=== PATIENT | female | born 1940 | race Hispanic/Latino ===

== ENCOUNTER 2021-10-11 17:47 | Emergency (ER) | payer OTHER, SELFPAY ==
[2021-10-11 18:18] VITALS: BP 156/95; PULSE 82; RESP 16; TEMP 37.2; O2SAT 98
--- NOTE | 2021-10-11 18:43 | ED.WOUNDLAC ---
HPI - Wound/Laceration General Chief Complaint: Wound/Laceration Stated Complaint: left leg swelling/painful Time Seen by Provider: 10/11/21 18:43 Source: patient Mode of arrival: ambulatory Limitations: no limitations History of Present Illness HPI narrative: Xochitl Larsen is a 81 yo female with a history of hypertension who comes to [facility] for a cut on her mid tibial area of her left leg that occurred 2 weeks ago in [place] when a door fell on her leg.. Is now red and tender Related Data Allergies Allergy/AdvReac Type Severity Reaction Status Date / Time No Known Allergies Allergy Verified 10/11/21 18:38 Review of Systems Review of Systems: CONSTITUTIONAL: Denies fever, chills, sweats. EYES: Denies visual changes, redness, discharge. ENT: Denies rhinorrhea, congestion, sore throat, otalgia. CARDIOVASCULAR: Denies chest pain, palpitations, edema. RESPIRATORY: Denies dyspnea, wheezing, cough GASTROINTESTINAL: Denies abdominal pain, nausea, vomiting, diarrhea. GENITOURINARY: Denies dysuria, hematuria, abnormal discharge SKIN: Denies rash or itching. Wound to left lower extremity anterior that is elliptical in shape and appears to be infected NEUROLOGIC: Denies numbness, or focal weakness. PSYCHIATRIC: Denies anxiety or depression. [facility] Past Medical History Medical History Hypertension Social History Social History (Updated 10/11/21 @ 18:44 by Cheyenne Mclean CNP) Smoking status: Never smoker Alcohol intake: never Comments At time of signature, I agree with nursing past medical, surgical, social and family history. There is no relevant family history pertinent to the presenting complaint. Exam Narrative: GENERAL: This is a well-nourished, well-developed patient, in mild distress. HEAD: normocephalic, atraumatic. EYES: Sclera clear/white. Vision is grossly intact. EARS: External ears normal, . Hearing grossly intact. NOSE: External nose normal without nasal discharge, nares without redness, no rhinorrhea. THROAT: Mucous membranes moist, NECK: Neck supple, CARDIOVASCULAR: Regular rate and rhythm without murmurs, gallops, or rubs. RESPIRATORY: Clear to auscultation. Breath sounds equal bilaterally. No wheezes, rales, or rhonchi. GASTROINTESTINAL: Abdomen soft, SKIN: warm, intact with elliptical wound to left lower leg that is about 4 cm in length and appears puffy red and open is not losing but is tender to touch and is warm; 2+ pulse to foot NEURO: awake, alert, and oriented to person, place and time. There were no obvious focal neurologic abnormalities. Steady gait EXTREMITIES: Normal range of motion. BACK: Nontender without deformity Course Course Emergency Course: Patient comes laceration to left lower leg that occurred 2 weeks ago in [place] when a door fell on her leg and is now become infected Patient started on Keflex and Bactrim To wrap area with Neosporin Telfa dressing and cover with a Calderon dressing. Clean wound with soap and water twice a day Vital Signs Vital signs: Vital Signs Temperature 98.9 F 10/11/21 18:18 Pulse Rate 82 10/11/21 18:18 Respiratory Rate 16 10/11/21 18:18 Blood Pressure 156/95 H 10/11/21 18:18 Pulse Oximetry 98 10/11/21 18:18 Temperature 98.9 F 10/11/21 18:18 Pulse Rate 82 10/11/21 18:18 Respiratory Rate 16 10/11/21 18:18 Blood Pressure 156/95 H 10/11/21 18:18 Pulse Oximetry 98 10/11/21 18:18 MDM - Wound/Laceration Differential Diagnosis Differential diagnosis: Likely laceration, abrasion and avulsion of skin Critical Care Time Critical Care Time Critical Care Time: No Discharge Plan Discharge Clinical Impression: Laceration Patient Disposition: Home, Self-Care Condition: Stable Instructions: Cellulitis (ED) Prescriptions: New cephalexin 500 mg capsule 500 mg PO Q12H Qty: 20 RF: 0 sulfamethoxazole-trimethoprim [Bactrim DS] 800-160 mg tabl
== END 2021-10-11 19:10 | disposition home or self-care (01) ==
PROVIDERS: Emergency Provider Nurse Practitioner; PCP Registered Nurse
DX: S81.812A Laceration without foreign body, left lower leg, initial encounter (principal); W20.8XXA Other cause of strike by thrown, projected or falling object, initial encounter; I10 Essential (primary) hypertension
CPT/HCPCS: 99203; G0463

== ENCOUNTER 2023-10-10 12:13 | Emergency (ER) | payer MEDICARE, SELFPAY ==
--- NOTE | ~2023-10-10 | XR_ITS ---
XR hip RT 2V w AP pelvis DATE: 10/10/2023 12:54 INDICATION: Multiple falls. Right hip pain. TECHNIQUE: COMPARISON: None FINDINGS: Dextroscoliosis and multi-level severe degenerative disc disease of the lumbar spine. 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 There is mild to moderate bilateral hip osteoarthritis. No pelvic fracture or bone destruction is detected. IMPRESSION: Dextroscoliosis and severe lumbar degenerative disc disease Mild to moderate bilateral hip osteoarthritis Reviewed, dictated and finalized at location L. GING ROLL OPERATOR
[2023-10-10 12:24] VITALS: BP 95/74; PULSE 88; RESP 24; TEMP 36.8; O2SAT 98
--- NOTE | 2023-10-10 12:32 | ED.DIZZY ---
HPI - Dizziness General Chief Complaint: Dizziness Stated Complaint: Dizziness/SOB Time Seen by Provider: 10/10/23 13:00 Mode of arrival: ambulatory Limitations: language barrier (Bhutanese speaking, painter foreman used) History of Present Illness HPI Narrative: 83 year old female presents with concern for dizziness, near-syncope, 3 falls in the last 4 days. She reports she had a pinching sensation in her right ear. She reports she has also been having a cough. She reports she fell today and hit her right hip, she is having some hip pain. She denies chest pain, shortness of breath, headache. She reports some mild cough and runny nose. MD elicited complaint: dizziness and near syncope Related Data Allergies Allergy/AdvReac Type Severity Reaction Status Date / Time Penicillins Allergy Rash Verified 10/10/23 12:45 Review of Systems Review of Systems: CONSTITUTIONAL: Denies malaise, chills, sweats, or fever. EYES: Denies visual changes ENT: Reports rhinorrhea, congestion, otalgia CARDIOVASCULAR: Denies chest pain, palpitations, or edema. RESPIRATORY: Reports cough. Denies dyspnea. GASTROINTESTINAL: Denies abdominal pain, nausea, vomiting, diarrhea MUSCULOSKELETAL: Reports right hip pain NEUROLOGIC: Denies numbness, weakness, or headache. Reports near syncope and dizziness All systems reviewed & are unremarkable except as noted in HPI and below PMFSH Past Medical History Medical History Dyslipidemia Essential (primary) hypertension Osteoarthritis Osteoporosis Surgical History Surgical History H/O cerebral aneurysm repair (~2015) clipping H/O shoulder surgery (~2017) Left Hx of cholecystectomy (~2007) Family History Family History Other Cerebrovascular accident Social History Social History Smoking status: Never smoker Alcohol intake: never Substance use: never Substance use type: does not use Lack of Transportation: No Lack of Food: Never True Current Housing: I Have Housing Concerned About Future Housing: No Difficulty Paying Gas/Electric Bills: No Difficulty Paying for Meds: No Currently Unemployed: No Education: Decline to Answer Difficulty w/ Childcare or Family Care: No Living arrangements: with family Occupation/Education: retired Gender identity (if verbalized by the patient): Female Sexual Orientation (if Verbalized by the Patient): Straight or Heterosexual Spiritual care concerns: No Agree to blood products: Yes Comments At time of signature, agree with nursing past medical, surgical, social and family history. There is no relevant family history pertinent to the presenting complaint Exam Narrative: GENERAL: Well-appearing, well-nourished, and in no acute distress. HEAD: Normocephalic, atraumatic. EYES: PERRLA, sclera clear, and EOMI. No nystagmus. ENT: Nares clear, turbinates pink, no rhinorrhea or epistaxis. Mucous membranes moist. TM pearly barnhart with dull light reflex bilaterally; no tragal tenderness. Oropharynx without erythema or lesions. Tonsils not enlarged and without exudate. NECK: Supple. CHEST: No respiratory distress. Clear to auscultation. No bony deformities, no asymmetry. Speaks in full sentences. Cough noted HEART: Regular rate and rhythm. No murmur heard. SKIN: Warm, dry, no visible rash. NEURO: Alert and oriented x3. PSYCH: Normal mood and affect Course Course Emergency Course: Patient is aware of, understands and agrees to be transferred to the emergency department, EMS offered, patient refused. Patient agrees to proceed directly to the emergency department. Portions of this record may have been created with voice recognition software Level of Care: Express Care Visit Vital Signs Vital signs:
--- NOTE | 2023-10-10 12:38 | ECG_ITS ---
Measurements Intervals [place] Rate: 81 P: 19 GA: 131 QRS: 27 QRSD: 86 T: 3 QT: 345 QTc: 401 Interpretive Statements SINUS RHYTHM WITH SINUS ARRHYTHMIA INCOMPLETE RIGHT BUNDLE BRANCH BLOCK BORDERLINE ST-T WAVE ABNORMALITY- INFERIOR LEADS BASELINE ARTIFACT- I, II, III, AVR, AVL, AVF, V1-V6 BORDERLINE ECG NO PREVIOUS ECG AVAILABLE FOR COMPARISON Electronically Signed On 10-10-2023 13:01:02 COLLISION MECHANIC by Farhat Bernard D.O.
== END 2023-10-10 13:20 | disposition short-term general hospital (02) ==
PROVIDERS: Emergency Provider Nurse Practitioner; PCP Family Medicine
DX: R42 Dizziness and giddiness (principal); E78.5 Hyperlipidemia, unspecified; I10 Essential (primary) hypertension; M19.90 Unspecified osteoarthritis, unspecified site; M81.0 Age-related osteoporosis without current pathological fracture
CPT/HCPCS: 73502; 81003; 93005; 99213; G0463

== ENCOUNTER 2023-10-10 13:42 | Emergency (ER) | payer MEDICARE, SELFPAY ==
[2023-10-10] VITALS (24 sets, daily range): BP systolic 99–119; BP diastolic 67–77; PULSE 64–88; RESP 13–25; TEMP 36.9; O2SAT 94–99
--- NOTE | 2023-10-10 13:49 | ECG_ITS ---
Measurements Intervals [place] Rate: 85 P: 19 MT: 118 QRS: -21 QRSD: 89 T: -6 QT: 359 QTc: 428 Interpretive Statements SINUS RHYTHM WITH SHORT MT INTERVAL INCOMPLETE RIGHT BUNDLE BRANCH BLOCK BORDERLINE ST-T WAVE ABNORMALITY- ANT/INF LEADS BASELINE ARTIFACT- I, II, III, AVR, AVL, AVF BORDERLINE ECG COMPARED TO ECG 10/10/2023 12:40:00 NO SIGNIFICANT CHANGES Electronically Signed On 10-10-2023 14:37:16 DOG CONTROL OFFICER by Farhat Bernard D.O.
[2023-10-10 14:14] LABS: Basophils Percent Auto 0.3 % (0.2-1.2); Eosinophils Percent Auto 0.3 % (0-4.4); Hematocrit 42.8 % (37.0-47.0); Hemoglobin 13.9 g/dL (12.0-15.0); Immature Granulocyte Absolute 0.29 K/mm3 (0.00-0.031); Immature Granulocyte Percent A 2.2 % (0-0.5); Lymphocytes Absolute Auto 2.02 K/mm3 (0.9-3.2); Lymphocytes Percent Auto 15.2 % (18.3-44.2); Mean Corpuscular HGB Conc 32.5 g/dl (32-36); Mean Corpuscular Hemoglobin 32.2 pg (26-34); Mean Corpuscular Volume 99.1 fl (80-100); Mean Platelet Volume 9.6 fl (7.4-10.4); Monocytes Absolute Auto 1.3 K/mm3 (0.1-0.6); Monocytes Percent Auto 9.5 % (2.6-8.5); Neutrophils Absolute Auto 9.7 K/mm3 (1.3-6.7); Neutrophils Percent Auto 72.5 % (45.5-73.1); Platelet Count Result 339 k/mm3 (150-375); Red Blood Count 4.32 M/mm3 (4.2-5.4); Red Cell Distribution Width 14.6 % (11.5-14.5); White Blood Count 13.3 K/mm3 (4.5-10.0)
[2023-10-10 14:25] LABS: Alanine Aminotransferase 23 U/L (6-35); Albumin Level 3.8 g/dL (3.5-5.1); Alkaline Phosphatase 101 U/L (38-126); Anion Gap 9 mmol/L (8-16); Aspartate Amino Transferase 27 U/L (14-36); Bilirubin,Total 0.6 mg/dL (0.2-1.3); Blood Urea Nitrogen 19 mg/dL (7-17); Calcium 8.5 mg/dL (8.4-10.2); Carbon Dioxide 24 mmol/L (22-30); Chloride 106 mmol/L (98-107); Estimated Glomerular Filt Rate > 60; Glucose 88 mg/dL (65-110); Potassium 3.8 mmol/L (3.4-5.0); Sodium 139 mmol/L (137-145)
[2023-10-10 15:45] LABS: Influenza A QL RT-PCR Positive (Negative); Influenza B QL RT-PCR Negative (Negative); RSV RNA, RT-PCR Negative (Negative); SARS-CoV-2 RNA PCR Negative (Negative)
--- NOTE | 2023-10-10 16:01 | ED.SYNCOPE ---
HPI - Syncope General Chief Complaint: Dizziness Stated Complaint: dizziness/near syncope Time Seen by Provider: 10/10/23 16:01 History of Present Illness HPI narrative: Patient is an 83 year old female with history of hypertension, HLD, osteoporosis here with dizziness and multiple falls. Patient endorses episodes of dizziness and the feeling like she may pass out. She had 2 separate episodes over the last few days. Last night she had an episode of dizziness and this made her feel as though she may pass out or fall over and she fell down onto a chair. She is initially experiencing some right hip pain but she has no pain at this time. She is currently completely asymptomatic and feels like her normal self. The dizziness is associated with some discomfort in her right ear. She also endorses cough and rhinorrhea which started about 2 weeks ago and seems to be improving. She denies chest pain, shortness of breath and headache. History obtained with hvac services professional [id number] and son. Related Data Allergies Allergy/AdvReac Type Severity Reaction Status Date / Time Penicillins Allergy Rash Verified 10/10/23 14:16 Review of Systems Review of Systems: All systems reviewed & are unremarkable except as noted in HPI and below PMFSH Past Medical History Medical History Dyslipidemia Essential (primary) hypertension Osteoarthritis Osteoporosis Surgical History Surgical History H/O cerebral aneurysm repair (~2015) clipping H/O shoulder surgery (~2018) Left Hx of cholecystectomy (~2007) Family History Family History Other Cerebrovascular accident Social History Social History Smoking status: Never smoker Alcohol intake: never Substance use: never Substance use type: does not use Lack of Transportation: No Lack of Food: Never True Current Housing: I Have Housing Concerned About Future Housing: No Difficulty Paying Gas/Electric Bills: No Difficulty Paying for Meds: No Currently Unemployed: No Education: Decline to Answer Difficulty w/ Childcare or Family Care: No Living arrangements: with family Occupation/Education: retired Gender identity (if verbalized by the patient): Female Sexual Orientation (if Verbalized by the Patient): Straight or Heterosexual Spiritual care concerns: No Agree to blood products: Yes Exam Narrative: GENERAL: Well-appearing, well-nourished, and in no acute distress. HEAD: Normocephalic, atraumatic. EYES: PERRLA and EOMI. ENT: Nares clear. Mucous membranes moist. Normal TMs bilaterally NECK: Supple. CHEST: Clear to auscultation. No respiratory distress. HEART: Regular rate and rhythm. Normal peripheral pulses. ABDOMEN: Soft, nontender, nondistended. EXTREMITIES: Normal range of motion. No edema. No hip or pelvis tenderness. No spinal tenderness. SKIN: Warm, dry, no rash. NEURO: No focal deficits. Alert and oriented x3. PSYCH: Normal mood and affect. Course Course Emergency Course: Chart review performed. Patient here with near syncope and dizziness x 4 days. Triage vitals grossly normal. Urgent care note from today reviewed. Triage lab work reviewed. WBC 13.3, electrolytes normal, she is positive for influenza A. Patient seen evaluated, nontoxic appearing and states that she is asymptomatic at this time. Having no hip pain. Cough has been present for 2 weeks, I anticipate she has likely had influenza before that time that she is recovering from, no current indication for Tamiflu. Will give patient prescription for Antivert, advise primary care follow-up and referral to ENT. Patient and family feel comfortable with this plan and are ready to go home. The results of pertinent diagnostic studies and exam findings were d
== END 2023-10-10 17:26 | disposition home or self-care (01) ==
PROVIDERS: Emergency Provider Student in an Organized Health Care Education/Training Program; PCP Family Medicine
DX: J10.1 Influenza due to other identified influenza virus with other respiratory manifestations (principal); R42 Dizziness and giddiness; H93.8X1 Other specified disorders of right ear; Z20.822 Contact with and (suspected) exposure to COVID-19; I10 Essential (primary) hypertension; E78.5 Hyperlipidemia, unspecified; M81.0 Age-related osteoporosis without current pathological fracture; M19.90 Unspecified osteoarthritis, unspecified site; Z90.49 Acquired absence of other specified parts of digestive tract; I45.10 Unspecified right bundle-branch block; R94.31 Abnormal electrocardiogram [ECG] [EKG]
CPT/HCPCS: 36415; 73502; 80053; 81003; 85025; 87637; 93005; 99284

== ENCOUNTER 2025-07-14 09:09 | Outpatient (CLI) | payer OTHER, SELFPAY ==
--- OUTSIDE RECORDS SUMMARY | 2025-07-14 09:18 | XMS_ITS | Clinical Summary ---
Author Organization [facility] Address [address] [place] [address] Care Team Providers Care Foot Roentgenologist Name Role Phone Everton Ashley NP Primary Care Provider [phone] Allergies Active Allergy Reactions Criticality Noted Date Comments Penicillins Unknown 10/08/2019 Medications piroxicam (FELDENE) 20 mg capsule Take 20 mg by mouth daily Active albuterol HFA (PROVENTIL HFA,VENTOLIN HFA,PROAIR HFA) 90 mcg/actuation inhaler INHALE 2 PUFFS PO Q 4-6 H PRF WHEEZING 0 9 Active benzonatate (TESSALON) 200 mg capsule TK 2 CS PO TID PRN FOR COUGH 0 9 Active predniSONE (DELTASONE) 50 mg tablet TK 1 T PO QAM WITH FOOD 0 9 Active traMADol (ULTRAM) 50 mg tablet 0 9 Active lidocaine-menthol 4-1 % adhesive patch,medicated Apply 1 patch topically daily 30 [address] (PROTONIX) 40 mg EC tablet TAKE 1 TABLET BY MOUTH EVERY DAY 90 tablet 3 Active traMADoL (ULTRAM) 50 mg tablet Take 1 tablet (50 mg total) by mouth every 6 (six) hours as needed for pain 5 tablet 3 Active ondansetron ODT (ZOFRAN-ODT) 4 mg disintegrating tablet Take 1 tablet (4 mg total) by mouth every 8 (eight) hours as needed for nausea or vomiting 12 tablet 06/11/202 3 Active Active Problems No known active problems Surgical History Surgery Date Site/Laterality Comments HERNIA REPAIR KYPHOPLASTY LUMBAR 11/05/2019 N/A Medical History Medical History Date Comments Arthritis Hypercholesteremia Hypertension Pneumonia Family History Medical History Relation Name Comments Stroke Daughter Arthritis Father Mental illness Father Stroke Sister Relation Name Status Comments Daughter Father Sister Social History Tobacco Use Types Packs/Day Years Used Date Smoking Tobacco: Never Smokeless Tobacco: Never Personal Safety Answer Date Recorded Getting School Help Needed Not on file 05/03 Comments No Sex and Gender Information Value Date Recorded Sex Assigned at Not on file Legal 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 Gender Identity Not on file Sexual Orientation Not on file Obstetrics History Last Filed Vital Signs Vital Sign Reading Time Taken Comments Blood Pressure 118/74 05/05/2023 1:30 PM CDT Pulse 59 05/05/2023 1:30 PM CDT Temperature 37 C (98.6 F) 05/05/2023 10:31 AM CDT Respiratory Rate 20 05/05/2023 1:30 PM CDT Oxygen Saturation 99% 05/05/2023 1:3 0 PM CDT Inhaled Oxygen Concentration - - Weight 70 kg (154 lb 5.2 oz) 05/05/2023 10:31 AM CDT in wheelchair Height 147.3 cm (4' 10) 05/05/2023 10: 31 AM CDT Body Mass Index 32.25 05/05/2023 10:31 AM CDT Plan of Treatment Health Maintenance Due Date Last Done Comments Depression Screening 1942 Fall Risk Assessment 1942 Osteoporosis Screening-Bone Density Scan 1942 DTaP/Tdap/Td Vaccine (1 - Tdap) 1953 Hepatitis B Screening 1960 Pneumococcal vaccine 65+ (1 of 1 - PCV) 1992 Zoster Vaccine (1 of 2) 1992 Well Visit 65+ 2007 Influenza Vaccine (#1) 2025 10/15/2019 Medical Devices Implanted Type Area Chain Maker Machine Device Identifier Shelf Expiration Date Model / Serial / Lot [employer] [id number] Vertaplex Hv [employer] Without Needle Delivery System Kit Bone - [id number] Implanted:Qty: 1 on 11/05/2019 at [facility] Bone [employer]ement [employer] 04/25/2022 [id number] / / [id number] Insurance [facility] MEDICARE IDPA [facility] Member Subscriber Plan / Payer (Ef fective 2021-Present) Name:Xochitl Larsen Relation to Subscriber:Self Name:Xochitl Larsen Payer ID:[id number] (NAIC) Type:MEDICAID RISK OTHER Address: [address] Advance Directives For more information, please contact: [phone] * Full Code (Latest Code Status on File) Date Activated Date Inactivated Comments 11/05/2019 10:07 AM 11/05/2019 3:00 PM Care Teams Foot Roentgenologist Relationship Specialty Start Date End Date Everton Ashley NP PCP - General Nurse Practitioner 08/26/19
[2025-07-14 12:54] LABS: Hematocrit 37.2 % (37.0-47.0); Hemoglobin 11.7 g/dL (12.0-15.0); Immature Granulocyte Percent A 0.3 % (0-0.5); Lymphocytes Absolute Auto 1.45 K/mm3 (0.9-3.2); Mean Corpuscular HGB Conc 31.5 g/dl (32-36); Mean Corpuscular Hemoglobin 29.5 pg (26-34); Mean Corpuscular Volume 93.9 fl (80-100); Nucleated Red Blood Cells Absolute Auto 0.000 K/mm3 (0.0-0.012); Nucleated Red Blood Cells Perc 0.0 % (0.0-0.2); Platelet Count Result 258 k/mm3 (150-375); Red Blood Count 3.96 M/mm3 (4.2-5.4); White Blood Count 7.0 K/mm3 (4.5-10.0)
[2025-07-14 13:11] LABS: Alanine Aminotransferase 13 U/L (6-35); Albumin Level 3.5 g/dL (3.5-5.1); Alkaline Phosphatase 90 U/L (38-126); Anion Gap 5 mmol/L (4-12); Aspartate Amino Transferase 36 U/L (14-36); Bilirubin,Total 0.3 mg/dL (0.2-1.3); Blood Urea Nitrogen 21 mg/dL (7-17); Calcium 8.8 mg/dL (8.4-10.2); Carbon Dioxide 24 mmol/L (22-30); Chloride 111 mmol/L (98-107); Cholesterol 139 mg/dL (0-200); Estimated Glomerular Filt Rate > 60; Glucose 78 mg/dL (65-110); HDL Direct 39 mg/dL; Potassium 4.2 mmol/L (3.4-5.0); Sodium 140 mmol/L (137-145); Total Protein 6.5 g/dL (6.3-8.2); Triglycerides 162 mg/dL (<150)
[2025-07-14 13:45] LABS: Thyroid Stimulating Hormone Reflex 5.230 uIU/mL (0.465-4.68)
[2025-07-14 13:48] LABS: Hemoglobin A1C 5.6 % (<5.7)
[2025-07-14 14:27] LABS: Free T4 Free Thyroxine Reflex 1.14 ng/dL (0.78-2.19)
[2025-07-14 15:39] LABS: Total Triiodothyronine (T3) 1.26 NG/ML (0.82-1.58)
== END 2025-07-14 09:10 | disposition home or self-care (01) ==
LOC: ANHGOSHLAB 09:10
PROVIDERS: PCP Nurse Practitioner Family; Visit Provider Nurse Practitioner Family
DX: I10 Essential (primary) hypertension (principal); R73.01 Impaired fasting glucose; E55.9 Vitamin D deficiency, unspecified
CPT/HCPCS: 36415; 80053; 80061; 82306; 83036; 84439; 84443; 84480; 85025